=== PATIENT | male | born 1965 | race Hispanic/Latino ===

== ENCOUNTER 2018-12-08 08:13 | Emergency (ER) | payer OTHER ==
[2018-12-08] MEDS ORDERED: IPRATROPIUM BROM 0.5MG/2.5ML ONE (08:46)
[2018-12-08] MEDS ORDERED: ALBUTEROL 2.5 MG/3 ML NEB SOL ONE (08:46)
[2018-12-08] MEDS ORDERED: ACETAMINOPHEN 500 MG TAB ONE (08:50)
--- NOTE | 2018-12-08 09:10 | RAD REPORT ---
EXAM DESCRIPTION: RAD - Chest Pa And Lat (2 Views) - 12/08/2018 8:36 am CLINICAL HISTORY: Productive cough, congestion, body aches COMPARISON: June 2017 TECHNIQUE: PA and lateral views of the chest were obtained. FINDINGS: The lungs are clear of a new mass, consolidation or failure finding. Patient has prominent fibrotic interstitial lung changes that are similar to comparison. Heart size is normal and centra l vasculature is within normal limits. No pleural effusion or pneumothorax seen. No acute bony find ing noted. No aortic abnormality. IMPRESSION: Chronic interstitial lung changes are present similar to June 2017. No new mass or consolidation identifiable. Chronic disease can mask acute interstitial infiltrate.
--- NOTE | 2018-12-08 09:17 | EDPHYS ---
Physician Documentation [facility] Name: Rolando Baker Jr Age: 53 yrs Sex: Male : 1965 Arrival Date: 12/08/2018 Time: 08:15 Bed 6 Private MD: ED Physician Rudi Garcia HPI: 12/08 08:26 This 53 yrs old Male presents to ER via Unassigned with complaints of Flu kb Symptoms. 08:26 The patient or guardian reports cough, that is intermittent, described as moderate, kb with no sputum, flu symptoms, low-grade fever, myalgias. Onset: The symptoms/episode began/occurred 3 day(s) ago. Severity of symptoms: At their worst the symptoms were moderate, in the emergency department the symptoms are unchanged. Modifying factors: The symptoms are alleviated by nothing, the symptoms are aggravated by nothing. Associated signs and symptoms: The patient has no apparent associated signs or symptoms. The patient has not experienced similar symptoms in the past. The patient has not recently seen a physician. Pt c/o cough, chills and headache for 3 days. Daughters had similar symptoms, brought to ER on and were given tamiflu and a z-pack. . Historical: - Allergies: 08:32 No Known Allergies; ph - PSHx: 08:32 septoplasty; ankle sx; ph - Immunization history:: Adult Immunizations unknown. - Social history:: Smoking status: Patient/guardian denies using tobacco. - Ebola Screening: : No symptoms or risks identified at this time. ROS: 08:27 ENT: Negative for injury, pain, and discharge, Neck: Negative for injury, pain, and kb swelling, Cardiovascular: Negative for chest pain, palpitations, and edema, Abdomen/GI: Negative for abdominal pain, nausea, vomiting, diarrhea, and constipation, Back: Negative for injury and pain, : Negative for injury, bleeding, discharge, and swelling, MS/Extremity: Negative for injury and deformity, Skin: Negative for injury, rash, and discoloration. 08:27 Constitutional: Positive for chills, Negative for body aches, fatigue, fever, malaise, poor PO intake, weight loss. 08:27 Respiratory: Positive for cough, Negative for dyspnea on exertion, hemoptysis, orthopnea, pleurisy, shortness of breath, sputum production, wheezing. 08:27 Neuro: Positive for headache, Negative for altered mental status, dizziness, gait disturbance, hearing loss, loss of consciousness, numbness, seizure activity, speech changes, syncope, near syncope, tingling, tinnitus, tremor, visual changes, weakness. Exam: 08:28 Constitutional: This is a well developed, well nourished patient who is awake, alert, kb and in no acute distress. Head/Face: Normocephalic, atraumatic. Neck: Trachea midline, no thyromegaly or masses palpated, and no cervical lymphadenopathy. Supple, full range of motion without nuchal rigidity, or vertebral point tenderness. No Meningismus. Chest/axilla: Normal chest wall appearance and motion. Nontender with no deformity. No lesions are appreciated. Cardiovascular: Regular rate and rhythm with a normal S1 and S2. No gallops, murmurs, or rubs. Normal PMI, no JVD. No pulse deficits. Respiratory: Lungs have equal breath sounds bilaterally, clear to auscultation and percussion. No rales, rhonchi or wheezes noted. No increased work of breathing, no retractions or nasal flaring. Abdomen/GI: Soft, non-tender, with normal bowel sounds. No distension or tympany. No guarding or rebound. No evidence of tenderness throughout. Skin: Warm, dry with normal turgor. Normal color with no rashes, no lesions, and no evidence of cellulitis. MS/ Extremity: Pulses equal, no cyanosis. Neurovascular intact. Full, normal range of motion. Neuro: Awake and alert, GCS 15, oriented to person, place, time, and situation. Cranial nerves II-XII grossly intact. Motor strength 5/5 in all extremities. Sensory grossly intact. Cerebellar exam normal. Normal gait. 08:28 ENT: External ear(s): are unremarkable, Ear canal(s): are normal, TM's: are normal, Nose: is normal, Mouth: is normal, Posterior pharynx: Airway: normal, Tonsils: bilaterally enlarged, with erythema, Uvula: normal, midline, swelling, that is moderate, erythema, that is moderate, exudate, is not appreciated. Vital Signs: 08:31 BP 140 / 86; Pulse 81; Resp 18; Temp 98.7(O); Pulse Ox 96% on R/A; Weight 121.56 kg; ph Height 5 ft. 11 in. (180.34 cm); 09:45 BP 131 / 78; Pulse 74; Resp 18; Temp 98.1; Pulse Ox 97% on R/A; ph 08:31 Body Mass Index 37.38 (121.56 kg, 180.34 cm) ph MDM: 08:18 Patient medically screened. kb 08:25 Data reviewed: vital signs, nurses notes. Data interpreted: Pulse oximetry: on room air kb is 96 %. Interpretation: normal. 09:15 Counseling: I had a detailed discussion with the patient and/or guardian regarding: the kb historical points, exam findings, and any diagnostic results supporting the discharge/admit diagnosis, lab results, radiology results, the need for outpatient follow up, a family practitioner, to return to the emergency department if symptoms worsen or persist or if there are any questions or concerns that arise at home. 12/08 08:23 Order name: Flu; Complete Time: 09:13 kb 12/08 08:23 Order name: Strep; Complete Time: 09:13 kb 12/08 08:23 Order name: Chest Pa And Lat (2 Views) XRAY; Complete Time: 09:13 kb 12/08 09:14 Order name: Throat Culture EDMS Administered Medications: 08:44 Drug: Albuterol 2.5 mg Route: Inhalation; ph 09:20 Follow up: Response: No adverse reaction ph 08:44 Drug: AtroVENT Aerosol 0.5 mg Route: Inhalation; ph 09:20 Follow up: Response: No adverse reaction ph 08:44 Drug: Tylenol 1000 mg Route: PO; ph 09:20 Follow up: Response: No adverse reaction ph 09:20 Drug: TORadol 60 mg Route: IM; Site: right deltoid; ph Disposition: 15:14 Co-signature as Attending Physician, Rudi Garcia MD. rn Disposition: 12/08/18 09:16 Discharged to Home. Impression: Bronchitis, not specified as acute or chronic. - Condition is Stable. - Discharge Instructions: Acute Bronchitis, [id number]. - Prescriptions for Albuterol Sulfate 90 mcg/actuation - inhale 1-2 puff by INHALATION route every 4-6 hours; 1 Inhaler. - Medication Reconciliation Form, Thank You Letter, Antibiotic Education, Prescription Opioid Use, Work release form form. - Follow up: Emergency Department; When: As needed; Reason: Worsening of condition. Follow up: Private Physician; When: 2 - 3 days; Reason: Recheck today's complaints, Continuance of care, Re-evaluation by your physician. Signatures: Dispatcher [employer] EDMeme Fletcher, ELECTROCARDIOGRAPHIC TECHNICIAN-C ELECTROCARDIOGRAPHIC TECHNICIAN-Ckb Rudi Garcia MD MD rn AndersenKailey RN RN ph Corrections: (The following items were deleted from the chart) 08:40 08:25 Data interpreted: Pulse oximetry: on room air is 100 %. Interpretation: normal. kbkb 09:51 09:16 12/08/2018 09:16 Discharged to Home. Impression: Bronchitis, not specified as ph acute or chronic. Condition is Stable. Forms are Medication Reconciliation Form, Thank You Letter, Antibiotic Education, Prescription Opioid Use. Follow up: Emergency Department; When: As needed; Reason: Worsening of condition. Follow up: Private Physician; When: 2 - 3 days; Reason: Recheck today's complaints, Continuance of care, Re-evaluation by your physician. kb
--- NOTE | 2018-12-08 09:17 | ER ---
Nurse's Notes [facility] Name: Rolando Baker Jr Age: 53 yrs Sex: Male : 1965 Arrival Date: 12/08/2018 Time: 08:15 Bed 6 Private MD: Diagnosis: Bronchitis, not specified as acute or chronic Presentation: 12/08 08:30 Presenting complaint: Patient states: Cough, headache, chills, and body aches since , denies N/V/D or sore throat. Transition of care: patient was not received from another setting of care. Onset of symptoms was December 08, 2018. Risk Assessment: Do you want to hurt yourself or someone else? Patient reports no desire to harm self or others. Initial Sepsis Screen: Does the patient meet any 2 criteria? No. Patient's initial sepsis screen is negative. Does the patient have a suspected source of infection? No. Patient's initial sepsis screen is negative. Care prior to arrival: None. 08:30 Method Of Arrival: Ambulatory ph 08:30 Acuity: DANICA 4 ph Historical: - Allergies: 08:32 No Known Allergies; ph - PSHx: 08:32 septoplasty; ankle sx; ph - Immunization history:: Adult Immunizations unknown. - Social history:: Smoking status: Patient/guardian denies using tobacco. - Ebola Screening: : No symptoms or risks identified at this time. Screenin:32 Abuse screen: Denies threats or abuse. Denies injuries from another. Nutritional ph screening: No deficits noted. Tuberculosis screening: No symptoms or risk factors identified. Fall Risk None identified. Assessment: 08:44 General: Appears in no apparent distress. comfortable, well groomed, Behavior is calm, ph cooperative, appropriate for age, Reports chills for feeling ill for 2-3 days. Pain: Complains of pain in head. Neuro: Level of Consciousness is awake, alert, obeys commands, Oriented to person, place, time, situation, Moves all extremities. Full function Speech is normal, Facial symmetry appears normal, Facial symmetry: tongue is midline, Reports headache Denies weakness blurred vision dizziness. Cardiovascular: Capillary refill < 3 seconds in bilateral fingers Patient's skin is warm and dry. Respiratory: Reports cough that is productive, Airway is patent Respiratory effort is even, unlabored, Respiratory pattern is regular, symmetrical, Breath sounds are clear bilaterally. GI: No signs and/or symptoms were reported involving the gastrointestinal system. Patient currently denies diarrhea, nausea, vomiting. Derm: Skin is intact, is healthy with good turgor, Skin is pink, warm \\T\\ dry. Musculoskeletal: Circulation, motion, and sensation intact. Range of motion: intact in all extremities. 09:21 Reassessment: Patient appears in no apparent distress at this time. Patient and/or ph family updated on plan of care and expected duration. Pain level reassessed. Patient is alert, oriented x 3, equal unlabored respirations, skin warm/dry/pink. Pt resting quietly, awaiting 15 min "shot time" before d/c. 09:45 Reassessment: Patient appears in no apparent distress at this time. Patient is alert, ph oriented x 3, equal unlabored respirations, skin warm/dry/pink. Pt d/c home. Vital Signs: 08:31 BP 140 / 86; Pulse 81; Resp 18; Temp 98.7(O); Pulse Ox 96% on R/A; Weight 121.56 kg; ph Height 5 ft. 11 in. (180.34 cm); 09:45 BP 131 / 78; Pulse 74; Resp 18; Temp 98.1; Pulse Ox 97% on R/A; ph 08:31 Body Mass Index 37.38 (121.56 kg, 180.34 cm) ph ED Course: 08:15 Patient arrived in ED. as 08:16 Meme Henderson FNP-C [facility]. kb 08:16 Rudi Garcia MD is Attending Physician. kb 08:27 Kailey Andersen, GRAHAM is Primary Nurse. ph 08:31 Triage completed. ph 08:32 Arm band placed on Patient placed in an exam room. ph 08:32 Patient has correct armband on for positive identification. Bed in low position. Call ph light in reach. Side rails up X 1. Pulse ox on. NIBP on. 08:33 X-ray completed. Patient tolerated procedure well. Patient moved back from radiology. sg4 08:33 Chest Pa And Lat (2 Views) XRAY In Process Unspecified. EDMS 08:44 Flu and/or RSV swab sent to lab. Strep swab sent to lab. em1 09:45 No provider procedures requiring assistance completed. Patient did not have IV access ph during this emergency room visit. Administered Medications: 08:44 Drug: Albuterol 2.5 mg Route: Inhalation; ph 09:20 Follow up: Response: No adverse reaction ph 08:44 Drug: AtroVENT Aerosol 0.5 mg Route: Inhalation; ph 09:20 Follow up: Response: No adverse reaction ph 08:44 Drug: Tylenol 1000 mg Route: PO; ph 09:20 Follow up: Response: No adverse reaction ph 09:20 Drug: TORadol 60 mg Route: IM; Site: right deltoid; ph Outcome: 09:16 Discharge ordered by . kb 09:51 Patient left the ED. ph 09:51 Discharged to home ambulatory. ph 09:51 Condition: good 09:51 Discharge instructions given to patient, Instructed on discharge instructions, follow up and referral plans. medication usage, Demonstrated understanding of instructions, follow-up care, medications, Prescriptions given X 1. Signatures: Dispatcher [employer] EDMeme Fletcher, ÓSCAR ARENAS-Kadie Monae Eric 1 Kailey Andersen RN RN Tyra Lopez 4
[2018-12-08] MEDS ORDERED: KETOROLAC 30 MG/ML INJ ONE (09:24)
== END 2018-12-08 09:51 | disposition home or self-care (01) ==
LOC: ER 08:13
DX: J40 Bronchitis, not specified as acute or chronic (principal)
CPT/HCPCS: 71046; 87070; 87081; 87804; 96372; 99284